=== PATIENT | female | born 1995 | race Hispanic/Latino ===

== ENCOUNTER 2018-11-10 18:29 | Emergency (ER) | payer SELFPAY ==
[2018-11-10 18:51] LABS: Bilirubin Negative (Negative); Blood, Urine Small (Negative); Glucose, Urine (Dipstick) Negative (Negative); Leukocyte Negative (Negative); Nitrite Negative (Negative); Protein, Urine (Dipstick) 30 mg/dL (Neg-Trace)
[2018-11-10 19:00] LABS: #Basophils 0.1 thou/uL (0.0-0.2); #Eosinphils 0.2 thou/uL (0.0-0.7); #Monocytes 0.5 thou/uL (0.11-0.59); #Neutrophils 5.6 thou/uL (1.40-6.50); %Basophils 0.9 % (0.0-1.0); %Eosinophils 2.5 % (0.0-10.0); %Lymphocytes 23.8 % (21.0-51.0); %Monocytes 6.1 % (0.0-10.0); %Neutrophils 66.6 % (42.0-75.0); Hemoglobin 11.9 g/dL (12.0-16.0); Mean Corpuscular HGB CONC 31.3 g/dL (32.0-36.0); Mean Corpuscular Hemoglobin 26.4 pg (27.0-31.0); Mean Corpuscular Volume 84.5 fL (78.0-98.0); Mean Platelet Volume 7.4 fL (7.4-10.4); Platelet Count 365 thou/uL (130-400); RBC Distribution Width 13.2 % (11.5-14.5); White Blood Cell (WBC) Count 8.4 thou/uL (4.8-10.8)
[2018-11-10 19:01] LABS: BHCG - Serum Negative (NEGATIVE); Pregs Control Bar Appear? YES (CONTROL BAR)
[2018-11-10] MEDS ORDERED: Ketorolac Tromethamine 30 MG/ML VIAL ONE (19:02)
[2018-11-10 19:03] LABS: Clarity SL HAZY (Clear)
[2018-11-10 19:05] LABS: RBC/HPF 0-3 HPF (0-3); Sperm/HPF Rare HPF (None Seen); WBC/HPF 0-3 HPF (0-3)
[2018-11-10 19:07] LABS: ALT (SGPT) 13 U/L (8-55); AST (SGOT) 11 U/L (5-34); Albumin 4.7 g/dL (3.5-5.0); Alkaline Phosphatase 58 U/L (40-110); Anion Gap 17 mmol/L (10-20); BUN (Urea Nitrogen) 12 mg/dL (7.0-18.7); Bilirubin, Total 0.3 mg/dL (0.2-1.2); Calc. Creatinine Clearance 0 mL/min (70-130); Calcium 10.1 mg/dL (7.8-10.44); Carbon Dioxide 20 mmol/L (22-29); Chloride 106 mmol/L (98-107); Estimated GFR-MDRD 64; Glucose 108 mg/dL (70-105); Lipase 32 U/L (8-78); Potassium 3.7 mmol/L (3.5-5.1); Protein, Total 7.7 g/dL (6.0-8.3); Sodium 139 mmol/L (136-145)
== END 2018-11-10 20:00 | disposition home or self-care (01) ==
LOC: NAV ERS 18:29
DX: N94.0 Mittelschmerz (principal)
CPT/HCPCS: 80053; 81003; 81015; 83690; 84703; 85025; 94760; 96374; J1885

== ENCOUNTER 2019-03-13 21:05 | Emergency (ER) | payer SELFPAY ==
[2019-03-13] MEDS ORDERED: Lorazepam 2 MG/ML VIAL ONE (21:19)
== END 2019-03-13 22:10 | disposition home or self-care (01) ==
LOC: NAV ERS 21:05
DX: F41.9 Anxiety disorder, unspecified (principal)
CPT/HCPCS: 93005; 96372; J2060